=== PATIENT | female | born 1935 | race Caucasian/White ===

== ENCOUNTER 2019-08-12 09:28 | Emergency (ER) | payer OTHER, BC ==
[~2019-08-12] VITALS: Ht 167.6 cm; Wt 69.4 kg
--- NOTE | ~2019-08-12 | EMS ---
[address] [address] EMS Patient Care Report Name: ARABELLA TAVAREZ Room #: REG ALMA Springer#: [id number] Admission: 08/12/19 Attend Phys: Discharge: Date of : 33 Report #: [id number] THIS REPORT FOR: //name// Report Transmitted: 08/12/2019 09:[address] [facility] MED-ACT Incident [id number] @ 08/12/2019 08:54 Incident Location [address] [place] [address] Patient ARABELLA TAVAREZ Female, 84 Years 1935 Patient Address [address] [place] [address] Patient History Hypertension,Urinary Tract Infection (UTI),Back Pain (Chronic), Patient Allergies No known allergies, Patient Medications Tramadol, Timolol, Hydralazine, Mirtazapine, Other, Metoprolol, OxyContin, Aspirin, Levothyroxine, Chief Complaint "I fell" Disposition Transported No Lights/[place] Dispatch Reason Falls Transported To [facility] Narrative EMS dispatched to a local independent living facility for a female patient. [address] [address] EMS Patient Care Report Name: ARABELLA TAVAREZ Room #: REG ALMA Springer#: [id number] Admission: 08/12/19 Attend Phys: Discharge: Date of : 34 Report #: [id number] Upon arrival EMS is greeted by the pt's care provider who states "she just fell out of her chair". Upon making contact with the patient she states she was reaching to grab something when she "just fell out". The patient denies: loss of consciousness, difficulty breathing, nausea, headache, blurry vision, abdominal pain, back pain, blood thinner use. Initial assessment is performed on pt with cervical spine precautions. The patient is assisted upright where vitals are performed. Bleeding is controlled on her arm and hand. The patient is assisted up to the cot where secured and moved to MICU Where secured. Secondary assessment is performed en route with vitals. Report is given to RN and care is transferred without incident at [facility]. Initial Vitals @09:16P: 100,R: 16,BP: 169/102,Pain: 0/10,GCS: 15,SpO2: 98,Revised Trauma: 12, @09:04P: 98,R: 16,BP: 192/158,Pain: 2/10,GCS: 15,SpO2: 94,Revised Trauma: 12, @09:03P: 90,R: 16,BP: 192/158,Pain: 2/10,GCS: 15,SpO2: 99,Revised Trauma: 12, @09:23P: 96,R: 16,BP: 171/103,Pain: 2/10,GCS: 15,SpO2: 99,Revised Trauma: 12, @09:22P: 99,R: 16,BP: 170/104,Pain: 0/10,GCS: 15,SpO2: 99,Revised Trauma: 12, Assessments @09:04MENTAL:Person Oriented,Time Oriented,Place Oriented,Event Oriented,SKIN:HEENT:Head/Face: No Abnormalities,LUNG SOUNDS:General: No Abnormalities,ABDOMEN:General: No Abnormalities,PELVIS//GI:No Abnormalities,EXTREMITIES:Left Arm: Other,Right Arm: No Abnormalities,Left Leg: No Abnormalities,Right Leg: No Abnormalities,PULSE:NEURO:@09:15MENTAL:No Abnormalities,SKIN:No Abnormalities,HEENT:Head/Face: No Abnormalities,Eyes: No Abnormalities,Neck/Airway: No Abnormalities,LUNG SOUNDS:General: No Abnormalities,Left Upper: No Abnormalities,Right Upper: No Abnormalities,Left Lower: No Abnormalities,Right Lower: No Abnormalities,ABDOMEN:General: No Abnormalities,Left Upper: No Abnormalities,Right Upper: No Abnormalities,Left Lower: No Abnormalities,Right Lower: No Abnormalities,PELVIS//GI:No Abnormalities,EXTREMITIES:Left Arm: No Abnormalities,Right Arm: No Abnormalities,Left Leg: No Abnormalities,Right Leg: No Abnormalities,PULSE:NEURO:No Abnormalities, Impression Injury of Shoulder or Upper Arm Procedures @09:15Bleeding ControlResponse: ImprovedSucceeded Timeline 08:54,Call Received [facility] [address] [place] [address] EMS Patient Care Report Name: ARABELLA TAVAREZ Room #: REG ALMA Springer#: [id number] Admission: 08/12/19 Attend Phys: Discharge: Date of : 33 Report #: [id number] 08:54,Psap Call 08:54,Dispatched 08:55,En Route 09:00,On Scene 09:03,At Patient 09:03,BP: 192/158 M,PULSE: 90,RR: 16 R,SPO2: 99 Ox,ETCO2: ,BG: ,PAIN: 2,GCS: 15, 09:04,BP: 192/158 M,PULSE: 98,RR: 16 R,SPO2: 94 Ox,ETCO2: ,BG: ,PAIN: 2,GCS: 15, 09:15,Bleeding Control,Response: ImprovedSucceeded, 09:16,BP: 169/102 M,PULSE: 100,RR: 16 R,SPO2: 98 Ox,ETCO2: ,BG: ,PAIN: 0,GCS: 15, 09:18,Depart Scene 09:22,BP: 170/104 M,PULSE: 99,RR: 16 R,SPO2: 99 Ox,ETCO2: ,BG: ,PAIN: 0,GCS: 15, 09:23,BP: 171/103 M,PULSE: 96,RR: 16 R,SPO2: 99 Ox,ETCO2: ,BG: ,PAIN: 2,GCS: 15, 09:26,At Destination 09:43,Call Closed Disclaimer v1.1 Copyright 2019 [employer] This EMS Care Summary contains data elements from the applicable legal record (which may be displayed differently). It is designed to provide pertinent information for the following purposes: continuity of care, clinical quality, and state data reporting. The complete legal record is available to ED staff and administrators of the receiving hospital in [employer]'s Patient Tracker. All data is provided "as is."
[2019-08-12] MEDS ORDERED: XTAMPZA ER18 MG PO (09:37)
[2019-08-12] MEDS ORDERED: SYNTHROID88 MC1 PO (09:38)
[2019-08-12] MEDS ORDERED: TOPROL XL50 MG PO (09:38)
[2019-08-12] MEDS ORDERED: TIMOLOL MALEATE5 M2 OPHTHALMIC (09:38)
[2019-08-12] MEDS ORDERED: DAYPRO600 MG PO (09:39)
[2019-08-12] MEDS ORDERED: ASA81BEC PO (09:39)
[2019-08-12] MEDS ORDERED: TRAMADOL 50 MG50 MG PO (09:39)
[2019-08-12] MEDS ORDERED: LISINOPRIL2.5 MG PO (09:39)
[2019-08-12] MEDS ORDERED: MIRTAZAPINE7.5 MG PO (09:40)
[2019-08-12 11:24] LABS: URINE BILIRUBIN NEGATIVE (Negative); URINE BLOOD TRACE (Negative); URINE CLARITY CLEAR; URINE COLOR YELLOW; URINE GLUCOSE-RANDOM* NEGATIVE (Negative); URINE KETONES NEGATIVE (Negative); URINE LEUKOCYTES-REFLEX NEGATIVE (Negative); URINE NITRITE-REFLEX NEGATIVE (Negative); URINE PROTEIN (DIPSTICK) NEGATIVE (Negative); URINE UROBILINOGEN 0.2 E.U./dl (0.2-1.0)
[2019-08-12 13:19] VITALS: BP 146/74
== END 2019-08-12 13:49 | disposition home or self-care (01) ==
LOC: ER 09:28
PROVIDERS: Emergency Medicine
DX: S51.812A Laceration without foreign body of left forearm, initial encounter (principal); W07.XXXA Fall from chair, initial encounter; Y93.89 Activity, other specified; Y92.098 Other place in other non-institutional residence as the place of occurrence of the external cause; Y99.8 Other external cause status

== ENCOUNTER → 2019-12-29 | Outpatient (CLI) | payer OTHER, BC ==
[~2019-12-29] MED LIST: ASA81BEC PO; DAYPRO600 MG PO; LISINOPRIL2.5 MG PO; MIRTAZAPINE7.5 MG PO; SYNTHROID88 MC1 PO; TIMOLOL MALEATE5 M2 OPHTHALMIC; TOPROL XL50 MG PO; TRAMADOL 50 MG50 MG PO; XTAMPZA ER18 MG PO
== END ==
LOC: ULTRA 12-22 20:45
DX: N28.1 Cyst of kidney, acquired (principal)

== ENCOUNTER 2021-11-11 10:57 | Emergency (ER) | payer OTHER, BC ==
[~2021-11-11] VITALS: Ht 157.5 cm; Wt 47.6 kg
--- NOTE | ~2021-11-11 | EMS ---
[address] [address] EMS Patient Care Report Name: ARABELLA TAVAREZ Room #: DEP ALMA Springer#: [id number] Admission: 11/11/21 Attend Phys: Discharge: 11/11/21 Date of : 33 Report #: [id number] THIS REPORT FOR: //name// Report Transmitted: 11/12/2021 07:03 EMS Care Summary [facility] MED-ACT Incident [id number] @ 11/11/2021 10:22 Incident Location [address] [place] [address] Patient ARABELLA TAVAREZ Female, 86 Years 1935 Patient Address [address] [place] [address] Patient History Hypertension (HTN), Patient Allergies No known allergies, Patient Medications Lisinopril, Metoprolol, Timolol, ASA, Tramadol, Levothyroxine, Mirtazapine, Chief Complaint Chest wall pain. Disposition Transported No Lights/[place] Dispatch [facility] N[facility] CC- Fall, chest injury [address] [address] EMS Patient Care Report Name: ARABELLA TAVAREZ Room #: DEP ER Gian#: [id number] Admission: 11/11/21 Attend Phys: Discharge: 11/11/21 Date of : 33 Report #: [id number] Hx- Pt reports that she tripped and fell this morning. Pt reports that she normally uses a walker to walk around. Pt reports that she fell backwards and perhaps hit her head but does not have any head pain at this time. Pt reports that as she lays on the floor she has some tenderness in her chest. Pt reports that she is assisted to a chair her chest pain resolved. Pt reports that her chest is tender with palpation. Pt reports that she did not have a LOC and is not taking a blood thinner. Pt reports that she is not having any complaints at this time. Pt reports that she would like to be transported to [facility] for evaluation in the ER. A- Arrive on scene to find pt lying on the floor in no apparent distress. GCS 15. Pt assessment is performed then she is assisted to her feet then to a chair. Pt is moved from her chair to the cot where she is secured with seatbelts. Pt is moved to the ambulance and transport begins. D- Upon arrival to [facility] pt was taken inside via the cot and moved laterally to the hospital bed. Pt care report and transfer of care given to nursing staff at [facility]. Initial Vitals @10:40P: 81,BP: 209/85,SpO2: 97, @10:38P: 55,SpO2: 43, @10:47P: 83,BP: 202/68,SpO2: 98, @10:40P: 79,SpO2: 75, @10:39P: 84,R: 16,BP: 213/90,Pain: 2/10,GCS: 15,Temp: 98.2F,SpO2: 93,Revised Trauma: 12,RI Suspected: false Impression Injury of Thorax (Upper Chest) Timeline 10:20,Call Received 10:20,Psap Call 10:22,Dispatched 10:23,En Route 10:27,On Scene 10:30,At Patient 10:38,BP: / M,PULSE: 55,RR: R,SPO2: 43 Ox,ETCO2: ,BG: ,PAIN: ,GCS: , 10:39,BP: 213/90 M,PULSE: 84,RR: 16 R,SPO2: 93 Ox,ETCO2: ,BG: ,PAIN: 2,GCS: 15, 10:40,BP: 209/85 M,PULSE: 81,RR: R,SPO2: 97 Ox,ETCO2: ,BG: ,PAIN: ,GCS: , 10:40,BP: / M,PULSE: 79,RR: R,SPO2: 75 Ox,ETCO2: ,BG: ,PAIN: ,GCS: , 10:45,Depart Scene 10:47,BP: 202/68 M,PULSE: 83,RR: R,SPO2: 98 Ox,ETCO2: ,BG: ,PAIN: ,GCS: , 10:53,At [facility] [address] [place] [address] EMS Patient Care Report Name: ARABELLA TAVAREZ Room #: DEP ALMA Springer#: [id number] Admission: 11/11/21 Attend Phys: Discharge: 11/11/21 Date of : 33 Report #: [id number] 11:18,Call Closed Disclaimer v1.1 Copyright 2021 [employer] This EMS Care Summary contains data elements from the applicable legal record (which may be displayed differently). It is designed to provide pertinent information for the following purposes: continuity of care, clinical quality, and state data reporting. The complete legal record is available to ED staff and administrators of the receiving hospital in [employer]'s Patient Tracker. All data is provided "as is."
[2021-11-11 12:00] LABS: ABSOLUTE NEUTROPHILS 4.8 thou/uL (1.4-8.2); BASOPHILS 0.3 % (0.0-2.0); EOSINOPHILS 1.2 % (0.0-3.0); HEMATOCRIT 43.3 % (37.0-47.0); HEMOGLOBIN 14.3 gm/dL (12.0-15.0); LYMPHOCYTES 12.9 % (24.0-44.0); MCH 31.4 pg (26.0-34.0); MCV 95.2 fL (80.0-100.0); PLATELET COUNT 182 thou/uL (150-400); POLYS 77.6 % (36.0-66.0); RBC 4.54 mil/uL (4.20-5.00); RDW 13.6 % (10.5-14.5); WBC 6.2 thou/uL (4.0-11.0)
[2021-11-11 12:06] LABS: CALCIUM 10.2 mg/dL (8.5-10.1); CREATININE 0.8 mg/dL (0.6-1.0); POTASSIUM 3.3 mmol/L (3.5-5.1)
[2021-11-11 14:11] VITALS: BP 200/90
--- NOTE | 2021-11-11 14:38 | EKG ---
[place] [address] [facility] [place] [address] ELECTROCARDIOGRAM REPORT Name: ARABELLA TAVAREZ Room #: DEP Gian#: [id number] Admission: 11/11/21 Attend Phys: Discharge: 11/11/21 Date of : 33 Report #: [id number] [facility] ED Test Date: 2021-11-11 Test Time: 11:18:59 Pat Name: ARABELLA TAVAREZ Department: Room: Gender: F Ent Surgeon: Elvi : 1935 Requested By: Archie Johnson Order Number: [id number] MD: Kian Ennis Measurements Intervals [place] Rate: 74 P: 15 SD: 144 QRS: 49 QRSD: 126 T: 24 QT: 409 QTc: 454 Interpretive Statements Sinus rhythm Right bundle branch block No previous ECG available for comparison Electronically Signed On 11-11-2021 14:38:24 GERIATRIC PHYSICAL THERAPIST by Kian Ennis [email or web address] <ELECTRONICALLY SIGNED> By: Kian Ennis MD, LOCATED WITHIN [facility] 11/11/21 1438 1118 1118 Kian Ennis MD, FACC /EPI
--- NOTE | 2021-11-11 14:39 | EKG ---
[facility] [employer] [place] [address] ELECTROCARDIOGRAM REPORT Name: ARABELLA TAVAREZ [id number] Admission: 11/11/21 Attend Phys: Discharge: 11/11/21 Date of : 34 Report #: [id number] [facility] ED Test Date: 2021-11-11 Test Time: 12:15:23 Pat Name: ARABELLA TAVAREZ Department: Room: Gender: F Foundation Relations Manager: NEDA : 1935 Requested By: Archie Johnson Order Number: [id number] MD: Kian Ennis Measurements Intervals [place] Rate: 77 P: -11 LA: 139 QRS: 45 QRSD: 126 T: 28 QT: 408 QTc: 462 Interpretive Statements Sinus rhythm Right bundle branch block Minimal ST elevation, lateral leads Compared to ECG 11/11/2021 11:18:59 ST (T wave) deviation now present Electronically Signed On 11-11-2021 14:39:01 AREA REPRESENTATIVE by Kian Ennis [email or web address] <ELECTRONICALLY SIGNED> By: Kian Ennis MD, [facility] 11/11/21 1439 1215 1215 Kian Ennis MD, FAC /EPI
== END 2021-11-11 14:13 | disposition home or self-care (01) ==
LOC: ER 10:57
PROVIDERS: Emergency Medicine
DX: R07.89 Other chest pain (principal); I10 Essential (primary) hypertension; E78.5 Hyperlipidemia, unspecified; F32.9 Major depressive disorder, single episode, unspecified; E03.9 Hypothyroidism, unspecified; F41.9 Anxiety disorder, unspecified; Z79.82 Long term (current) use of aspirin; Z79.899 Other long term (current) drug therapy